=== PATIENT | male | born 2000 | race Hispanic/Latino ===

== ENCOUNTER 2021-07-20 06:57 | Emergency (ER) | payer SELFPAY ==
[~2021-07-20] VITALS: Ht 165.1 cm; Wt 108.9 kg
[2021-07-20] MEDS ORDERED: AZITHROMYCIN 250 MG TAB PO ONE (07:15)
[2021-07-20] MEDS ORDERED: CEFTRIAXONE 250 MG VIAL IM ONE (07:15)
[2021-07-20] MEDS ORDERED: LIDOCAINE HCL 2% LOCAL 20 ML VIAL ONE (07:34)
[2021-07-20 07:50] VITALS: BP 175/114
[2021-07-20] MEDS ORDERED: DOXYCYCLINE HY100 MG PO (13:15)
== END 2021-07-20 08:02 | disposition home or self-care (01) ==
LOC: ER 07:05
DX: A64 Unspecified sexually transmitted disease (principal)
CPT/HCPCS: 99282; J0696; J2001

== ENCOUNTER 2021-07-20 11:36 | Emergency (ER) | payer SELFPAY ==
[~2021-07-20] VITALS: Ht 165.1 cm; Wt 108.9 kg
[2021-07-20 12:33] LABS: CLARITY,URINE CLOUDY (CLEAR); COLOR,URINE YELLOW (YELLOW); KETONES,URINE NEGATIVE (NEGATIVE); LEUKOCYTE ESTERASE ,URINE SMALL (NEGATIVE); NITRITE,URINE NEGATIVE (NEGATIVE); PROTEIN,URINE DIPSTICK 2+ (NEGATIVE); URINE UROBILINOGEN 0.2 mg/dL (0.2 - 1)
[2021-07-20] MEDS ORDERED: DOXYCYCLINE HYCLATE TABLET 100 MG TAB PO ONE (13:00)
[2021-07-20 13:08] LABS: BACTERIA,URINE RARE /HPF; MUCUS,URINE FEW (RARE); RBC,URINE >50 /HPF (0-5)
[2021-07-20] MEDS ORDERED: DOXYCYCLINE HY100 MG PO (13:15)
== END 2021-07-20 13:34 | disposition home or self-care (01) ==
LOC: ER 11:42
DX: N39.0 Urinary tract infection, site not specified (principal); A64 Unspecified sexually transmitted disease
CPT/HCPCS: 81001; 87086; 99283

== ENCOUNTER 2022-06-08 11:39 | Emergency (ER) | payer OTHER ==
[~2022-06-08] VITALS: Ht 165.1 cm; Wt 106.8 kg
[~2022-06-08 11:39] MED LIST: DOXYCYCLINE HY100 MG PO
[2022-06-08] MEDS ORDERED: ZITHROMAX250 MG PO (12:49)
[2022-06-08] MEDS ORDERED: BENZONATATE200 MG PO (12:49)
== END 2022-06-08 13:03 | disposition home or self-care (01) ==
LOC: FSED 11:56
DX: R05.9 Cough, unspecified (principal); J20.9 Acute bronchitis, unspecified; F17.210 Nicotine dependence, cigarettes, uncomplicated
CPT/HCPCS: 87400; 99283